=== PATIENT | male | born 1955 | race African-American/Black ===

== ENCOUNTER 2019-06-10 18:20 | Emergency (ER) | payer MEDICARE, OTHER ==
[~2019-06-10] VITALS: Ht 190.5 cm; Wt 90.7 kg
[2019-06-10 18:20] VITALS: BP 142/70
--- NOTE | 2019-06-10 18:35 | NUR ---
ED Nurse Note: Mantilla cath changed patent and intact
--- NOTE | 2019-06-10 18:35 | NUR ---
ED Nurse Note: [facility] brought pt from snf to change urinary catheter.
[2019-06-10 18:36] VITALS: BP 142/70
--- NOTE | 2019-06-10 18:39 | NUR ---
ER DISCHARGE NOTE: Patient is cleared to be discharged per ERMD, pt is aox4, on room air, with stable vital signs. pt was given dc ations. pt was transported with [facility]. pt took all belongings.
--- NOTE | 2019-06-10 18:39 | Emergency Room Report ---
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 There was no reports of chest pain or shortness of breath there was no reports of fevers Patient has history of UTI and sepsis Allergies: Coded Allergies: No Known Allergies (Unverified , 06/10/19) COVID-19 Screening Contact w/high risk pt: No Recent Travel to affected area: No Experienced COVID-19 symptoms?: No Patient History Limited by: medical condition Past Medical History: see triage record Reviewed Nursing Documentation: PMH: Agreed; PSxH: Agreed Review of Systems All Other Systems: limited - Other than the ones mentioned in the history of present illness all others are reviewed however they do stay limited due to the patient's mental status Physical Exam Vital Signs Date Time Temp Pulse Resp B/P (MAP) Pulse Ox O2 Delivery O2 Flow Rate FiO2 06/10/19 18:20 97.3 70 18 142/70 (94) 96 Room Air Sp02 EP Interpretation: reviewed, normal General Appearance: no apparent distress Head: normocephalic, atraumatic Eyes: bilateral eye PERRL, bilateral eye EOMI ENT: hearing grossly normal, EOM grossly intact Neck: supple Respiratory: lungs clear, no respiratory distress, no retraction Cardiovascular #1: regular rate, rhythm Gastrointestinal: non tender, soft Genitourinary: other - Previous catheter in place Musculoskeletal: other - Paraplegia Neurologic: alert Skin: no rash Lymphatic: no adenopathy Medical Decision Making Diagnostic Impression: Primary Impression: new catheter replacement ER Course New catheter was replaced by nursing staff without any incidents New New catheter is in place flowing well patient is otherwise asymptomatic afebrile vital signs are normal Further testing was not performed in the ER and patient transferred back to nursing facility for continued care Last Vital Signs Date Time Temp Pulse Resp B/P (MAP) Pulse Ox O2 Delivery O2 Flow Rate FiO2 06/10/19 18:20 97.3 70 18 142/70 (94) 96 Room Air Status: improved Disposition: SNF Condition: Improved Patient Instructions: New Catheter Care, Adult, [id number] Additional Instructions: Patient is provided with the discharge instructions notified to follow up with primary doctor in the next 2-3 days otherwise return to the er with any worsening symptoms. Please note that this report is being documented using DRAGON technology. This can lead to erroneous entry secondary to incorrect interpretation by the dictating instrument. Khanh Cardona DO June 10, 2019 18:39
== END 2019-06-10 18:40 ==
LOC: EDBD 18:20 → EMR 18:40
DX: T83.018A Breakdown (mechanical) of other urinary catheter, initial encounter (principal); G82.20 Paraplegia, unspecified
CPT/HCPCS: 51702; 99284